=== PATIENT | female | born 1930 | race African-American/Black ===

== ENCOUNTER 2017-07-26 07:04 | Day surgery (SDC) | payer MEDICARE, MEDICAID ==
[2017-07-26] VITALS (10 sets, daily range): BP systolic 105–179; BP diastolic 53–94; PULSE 59–69
[~2017-07-26] VITALS: Ht 162.6 cm; Wt 93.2 kg
[2017-07-26 07:29] LABS: HEMOGLOBIN 11.8 g/dl (12.5-16.0); MEAN CELL VOLUME 92 fl (80.0-100.0); MEAN CORPUSCULAR HEMOGLOBIN 31 pg (27.0-31.0); MEAN CORPUSCULAR HGB CONC 34 g/dl (33.0-37.0); MEAN PLATELET VOLUME 9.8 fl (7.4-10.4); PLATELET COUNT 245 K/mm3 (130-400); RED BLOOD COUNT 3.77 M/mm3 (4.10-5.30)
[2017-07-26 07:30] LABS: HEMATOCRIT 34.6 % (37.0-47.0)
[2017-07-26 07:38] LABS: CALCIUM 9.6 mg/dL (8.4-10.2); CREATININE, serum 0.98 mg/dL (0.52-1.25); POTASSIUM 4.5 mmol/L (3.4-5.0)
[2017-07-26] MEDS ORDERED: ASPIRIN 81M81 MG/TA2 PO (07:47)
[2017-07-26] MEDS ORDERED: GLUCOSAMINE & C1 CA2 PO (07:47)
[2017-07-26] MEDS ORDERED: COZAAR100 MG PO (07:48)
[2017-07-26] MEDS ORDERED: MULTIVITAMIN1 CTB PO (07:48)
[2017-07-26] MEDS ORDERED: IMDUR 60MG60 MG/TAB PO (07:49)
[2017-07-26] MEDS ORDERED: LASIX 40MG TABL40 MG PO (07:49)
[2017-07-26] MEDS ORDERED: COREG12.5 MG PO (07:49)
[2017-07-26] MEDS ORDERED: ZETIA 10MG TAB10 MG PO (07:50)
[2017-07-26] MEDS ORDERED: RANEXA 500MG T500 MG PO (07:50)
[2017-07-26] MEDS ORDERED: VITAMIN D31000 I1 PO (07:50)
[2017-07-26] MEDS ORDERED: LOVAZA1 GM PO (07:51)
[2017-07-26] MEDS ORDERED: NAMENDA 10MG TA10 MG PO (07:52)
[2017-07-26] MEDS ORDERED: CALCIUM 600MG+D1 TAB PO (07:52)
[2017-07-26] MEDS ORDERED: DESYREL 50MG50 MG PO (07:52)
[2017-07-26] MEDS ORDERED: ZOCOR 20MG20 MG PO (07:53)
[2017-07-26] MEDS ORDERED: CEPHALEXIN500 M1 PO (10:23)
== END 2017-07-26 13:43 | disposition home or self-care (01) ==
LOC: COL.CAR 07:04
PROVIDERS: Internal Medicine Cardiovascular Disease
DX: Z45.02 Encounter for adjustment and management of automatic implantable cardiac defibrillator (principal); I42.9 Cardiomyopathy, unspecified; G30.9 Alzheimer's disease, unspecified; F02.80 Dementia in other diseases classified elsewhere, unspecified severity, without behavioral disturbance, psychotic disturbance, mood disturbance, and anxiety; M19.90 Unspecified osteoarthritis, unspecified site
CPT/HCPCS: C1882; J0690; J2250; J3010; J7030